=== PATIENT | female | born 1950 | race Caucasian/White ===

== ENCOUNTER → 2021-03-25 | Emergency (ER) | payer MEDICAID ==
[~2021-03-25] VITALS: Ht 154.9 cm; Wt 79.4 kg
[~2021-03-25] MED LIST: ASCO500T20 PO; CARV25TA2 PO; LEVO75TA7 PO; LISI20TA30 PO; OMEG-220 PO
[2021-03-25 15:53] VITALS: BP 135/55
--- NOTE | 2021-03-25 16:41 | NUR ---
unable to discharge due to meditech issues.
--- NOTE | 2021-03-25 16:41 | NUR ---
Patient discharged to home in stable condition. Written and verbal after care instructions given. Patient verbalizes understanding of instruction.
== END | disposition home or self-care (01) ==
LOC: ER 15:43
DX: M79.10 Myalgia, unspecified site (principal); R41.0 Disorientation, unspecified; I10 Essential (primary) hypertension; F41.9 Anxiety disorder, unspecified; Z98.890 Other specified postprocedural states; V49.69XA Unspecified car occupant injured in collision with other motor vehicles in traffic accident, initial encounter; Y93.89 Activity, other specified; Y92.413 State road as the place of occurrence of the external cause; Y99.8 Other external cause status